=== PATIENT | female | born 1955 | race Two or more races ===

== ENCOUNTER → 2024-04-19 | Day surgery (SDC) | payer OTHER | END | disposition home or self-care (01) | LOC: FRADUS-SUR 11:09 | PROVIDERS: ATTEND Surgery | PROC: 0H9V3ZX Drainage of Bilateral Breast, Percutaneous Approach, Diagnostic (ICD-10-PCS; principal; 2024-04-19) | DX: N60.31 Fibrosclerosis of right breast (principal); N60.21 Fibroadenosis of right breast; N60.11 Diffuse cystic mastopathy of right breast; N60.32 Fibrosclerosis of left breast; N60.12 Diffuse cystic mastopathy of left breast; N60.82 Other benign mammary dysplasias of left breast; N64.89 Other specified disorders of breast | CPT/HCPCS: 19085; 19086; 76642-TC-LT; 77066-TC; 88305-TC; A4648 ==

== ENCOUNTER 2024-09-08 06:50 | Inpatient (IN) | payer OTHER ==
[2024-09-08] MEDS ORDERED: PROPOFOL 20 ML ONE ×2 (08:47→18:04)
[2024-09-08] MEDS ORDERED: MIDAZOLAM HCL 2 MG/2 ML SINGLE DOSE VIAL ONE ×2 (08:48→19:21)
[2024-09-08] MEDS ORDERED: ceFAZolin SODIUM 1 GM VIAL ONE (08:49)
[2024-09-08] MEDS ORDERED: ONDANSETRON 4 MG/2 ML VIAL ONE (08:49)
[2024-09-08] MEDS ORDERED: LIDOCAINE HCL/PF 2% SDV 5ML VIAL ONE (08:49)
[2024-09-08] MEDS ORDERED: DEXAMETHASONE SOD PHOSPHATE 4 MG/1 ML VIAL ONE (08:49)
[2024-09-08] MEDS ORDERED: PROPOFOL 60 ML ONE (08:51)
[2024-09-08] MEDS ORDERED: HYDROmorphone HCl 2 MG/ML VIAL ONE (08:54)
[2024-09-08] MEDS ORDERED: SEVOFLURANE 250 ML BTL ONE (08:55)
[2024-09-08] MEDS ORDERED: ACETAMINOPHEN INJECTION 100 ML ONE (08:56)
[2024-09-08] MEDS ORDERED: BUPIVACAINE HCL/PF 0.5% (5MG/ML) 10 ML VIAL ONE (08:56)
[2024-09-08] MEDS ORDERED: ISOSULFAN BLUE 50 MG/5 ML VIAL SQ ONE (08:56)
[2024-09-08] MEDS: ceFAZolin 2 GRAM PREMIX BAG IVPB ONE (10:15)
[2024-09-08] MEDS ORDERED: ROCURONIUM BROMIDE 50 MG/5 ML SYRINGE ONE ×3 (10:21→20:15)
[2024-09-08] MEDS ORDERED: BACITRACIN ZINC 15 GM TUBE TOPICAL OINTMENT ONE (11:54)
[2024-09-08] MEDS ORDERED: SUGAMMADEX SODIUM 200 MG/2 ML VIAL ONE ×2 (11:59→20:40)
[2024-09-08] MEDS ORDERED: ONDANSETRON 4 MG/2 ML VIAL IVPUSH PRN ×3 (12:45→21:18)
[2024-09-08] MEDS ORDERED: oxyCODONE HCL 5 MG TABLET PO PRN ×6 (12:45→21:18)
[2024-09-08] MEDS ORDERED: MECLIZINE HCL 12.5 MG TABLET PO SCH (13:00)
[2024-09-08] MEDS: LACTATED RINGERS SOLUTION 1,000 ML IV SCH ×2 (16:01→21:49)
[2024-09-08] MEDS: INSULIN ASPART SLIDING SCALE (NOVOLOG) 1 VIAL SQ SCH ×2 (17:10→23:19)
[2024-09-08] MEDS: LACTATED RINGERS SOLUTION 1000 ML INFUS.BAG IV ONE (17:50)
[2024-09-08] MEDS ORDERED: SUCCINYLCHOLINE CHLORIDE 200 MG/10 ML SYRINGE ONE (18:04)
[2024-09-08] MEDS ORDERED: TRANEXAMIC ACID 1000 MG/10 ML VIAL ONE (18:04)
[2024-09-08] MEDS: SODIUM CHLORIDE 1,000 ML IV STA (18:05)
[2024-09-08] MEDS: TRANEXAMIC ACID 1000 MG/10 ML VIAL IVPB ONE (18:27)
[2024-09-08] MEDS ORDERED: ETOMIDATE 20 MG/10 ML VIAL IVPUSH ONE (18:28)
[2024-09-08 18:34] LABS: HEMATOCRIT 25.4 % (32.4-45.2); HEMOGLOBIN 8.2 GM/dL (10.7-15.3); MCH 35.2 pg (25.7-33.7); MCHC 32.5 g/dl (32.0-36.0); MEAN CELL VOLUME 108.3 fl (80-96); MEAN PLT VOLUME 9.3 fl (7.5-11.1); PLATELET COUNT 247 10^3/uL (134-434); RBC 2.34 M/mm3 (3.60-5.2); RDW 16.9 % (11.6-15.6); WHITE BLOOD COUNT 18.6 K/mm3 (4.0-10.0)
[2024-09-08 18:46] LABS: INR 1.21 (0.83-1.09); PROTHROMBIN TIME (PATIENT) 13.2 SEC (9.7-13.0)
[2024-09-08 18:56] LABS: ADD RBC MORPHOLOGY YES
[2024-09-08 18:57] LABS: POTASSIUM 3.5 mmol/L (3.5-5.1)
[2024-09-08 18:58] LABS: CALCIUM 8.3 mg/dL (8.5-10.1)
[2024-09-08 18:59] LABS: BLOOD UREA NITROGEN 20.7 mg/dL (7-18)
[2024-09-08 19:02] LABS: CREATININE 0.7 mg/dL (0.55-1.3)
[2024-09-08] MEDS: CEFAZOLIN 1 GM/D5W 1 GM/50 ML BAG IVPB SCH (19:02)
[2024-09-08 19:55] LABS: ANISOCYTOSIS 2+; MACROCYTOSIS 2+; TEAR DROP CELLS 1+
[2024-09-08 20:00] LABS: HEMATOCRIT 30.5 % (32.4-45.2); MCH 31.6 pg (25.7-33.7); MCHC 32.7 g/dl (32.0-36.0); MEAN CELL VOLUME 96.8 fl (80-96); PLATELET COUNT 138 10^3/uL (134-434); RBC 3.15 M/mm3 (3.60-5.2); RDW 18.4 % (11.6-15.6); WHITE BLOOD COUNT 16.6 K/mm3 (4.0-10.0)
[2024-09-08 20:01] LABS: ARTERIAL BLD GAS O2 SATURATION 99.6 % (95-98); ARTERIAL BLOOD GAS BASE EXCESS -10.3 mmol/L (-2-2); ARTERIAL BLOOD GAS PO2 328.9 mmHg (80-100); ARTERIAL BLOOD GAS pH 7.219 (7.350-7.450)
[2024-09-08] MEDS: ALBUMIN HUMAN 5% 250 ML IV SOLUTION IV ONE (20:15)
[2024-09-08 20:22] LABS: INR 1.48 (0.83-1.09); PROTHROMBIN TIME (PATIENT) 16.1 SEC (9.7-13.0)
[2024-09-08 20:28] LABS: POTASSIUM 3.8 mmol/L (3.5-5.1)
[2024-09-08 20:30] LABS: BLOOD UREA NITROGEN 17.1 mg/dL (7-18)
[2024-09-08 20:33] LABS: CREATININE 0.6 mg/dL (0.55-1.3)
[2024-09-08 20:41] LABS: ARTERIAL BLD GAS O2 SATURATION 99.8 % (95-98); ARTERIAL BLOOD GAS BASE EXCESS -6.2 mmol/L (-2-2); ARTERIAL BLOOD GAS PO2 379.4 mmHg (80-100); ARTERIAL BLOOD GAS pH 7.305 (7.350-7.450)
[2024-09-08] MEDS ORDERED: MECLIZINE HCL 12.5 MG TABLET PO PRN (21:18)
[2024-09-08 21:23] LABS: LACTIC ACID 2.7 mmol/L (0.4-2.0)
[2024-09-08] MEDS: ACETAMINOPHEN 1000 MG/100 ML BAG IVPB SCH (22:58)
[2024-09-09] MEDS: CEFAZOLIN 1 GM in DEXTROSE 5%-WATER - 50 ML IVPB ONE (00:07)
[2024-09-09] MEDS ORDERED: CEFAZOLIN 1 GM/D5W 1 GM/50 ML BAG IVPB SCH (02:00)
[2024-09-09] MEDS: ACETAMINOPHEN 1000 MG/100 ML BAG IVPB SCH (04:05)
[2024-09-09] MEDS: CEFAZOLIN 1 GM in DEXTROSE 5%-WATER - 50 ML IVPB SCH (06:35)
[2024-09-09 07:55] LABS: BASO % 0.3 % (0-2.0); EOS % 0.1 % (0-4.5); HEMATOCRIT 25.8 % (32.4-45.2); HEMOGLOBIN 9.3 GM/dL (10.7-15.3); MCH 33.1 pg (25.7-33.7); MEAN CELL VOLUME 91.7 fl (80-96); MEAN PLT VOLUME 9.2 fl (7.5-11.1); MONO % 10.6 % (3.8-10.2); PLATELET COUNT 132 10^3/uL (134-434); RBC 2.82 M/mm3 (3.60-5.2); RDW 19.6 % (11.6-15.6); WHITE BLOOD COUNT 10.9 K/mm3 (4.0-10.0)
[2024-09-09 08:18] LABS: POTASSIUM 3.7 mmol/L (3.5-5.1)
[2024-09-09 08:19] LABS: BLOOD UREA NITROGEN 15.2 mg/dL (7-18); CALCIUM 8.7 mg/dL (8.5-10.1)
[2024-09-09 08:23] LABS: CREATININE 0.6 mg/dL (0.55-1.3)
[2024-09-09] MEDS: ATORVASTATIN CA 20 MG TABLET (FP) PO SCH (09:29)
[2024-09-09] MEDS: oxyCODONE HCL 5 MG TABLET PO PRN (09:31)
[2024-09-09] MEDS ORDERED: MUPIROCIN 2% TOPICAL OINTMENT FOR DECOLONIZATION NS SCH (10:00)
[2024-09-09] MEDS ORDERED: HYDROCHLOROTHIAZIDE 25 MG TABLET (FP) PO SCH (10:00)
[2024-09-09] MEDS ORDERED: LOSARTAN POTASSIUM 50 MG TABLET PO SCH (10:00)
[2024-09-09] MEDS ORDERED: ASPIRIN 81 MG CHEWABLE TABLETS PO SCH (10:00)
[2024-09-09] MEDS ORDERED: ATORVASTATIN CA 20 MG TABLET (FP) PO SCH (10:00)
[2024-09-09 10:37] VITALS: RESP 16
[2024-09-09 12:30] VITALS: BMI 27.6
[2024-09-09] MEDS ORDERED: oxyCODONE HCL 5 MG TABLET PO PRN (12:46)
[2024-09-09 15:09] VITALS: BP 112/72; PULSE 80; TEMP 99
[2024-09-09] MEDS ORDERED: CHLORHEXIDINE GLUCONATE 4% CLEANSER FOR DECOLONIZATION TP SCH (22:00)
== END 2024-09-09 15:00 | disposition home or self-care (01) | DRG 580 ==
LOC: JASUSAT 06:50 → JASU-SURG 06:50 → JASUSAT 11:10 → J7W 15:51 → J8W 16:29 → JICU 22:31
PROVIDERS: ADMIT Student in an Organized Health Care Education/Training Program; ATTEND Internal Medicine
PROC: 30233N1 Transfusion of Nonautologous Red Blood Cells into Peripheral Vein, Percutaneous Approach (ICD-10-PCS; 2024-09-08)
PROC: 07B50ZX Excision of Right Axillary Lymphatic, Open Approach, Diagnostic (ICD-10-PCS; principal; 2024-09-08 10:30)
PROC: 0HTT0ZZ Resection of Right Breast, Open Approach (ICD-10-PCS; 2024-09-08 10:30)
PROC: 0W380ZZ Control Bleeding in Chest Wall, Open Approach (ICD-10-PCS; 2024-09-08 10:30)
PROC: 0W980ZZ Drainage of Chest Wall, Open Approach (ICD-10-PCS; 2024-09-08 10:30)
DX: C50.911 Malignant neoplasm of unspecified site of right female breast (principal); D62 Acute posthemorrhagic anemia; L76.32 Postprocedural hematoma of skin and subcutaneous tissue following other procedure; Y83.8 Other surgical procedures as the cause of abnormal reaction of the patient, or of later complication, without mention of misadventure at the time of the procedure; I95.81 Postprocedural hypotension; E86.1 Hypovolemia; R73.03 Prediabetes; I10 Essential (primary) hypertension; E78.5 Hyperlipidemia, unspecified; Z86.73 Personal history of transient ischemic attack (TIA), and cerebral infarction without residual deficits
CPT/HCPCS: 36415; 36430; 36600; 76098-TC-FY; 78195-TC; 80048; 82803; 82962; 83605; 85025; 85027; 85384; 85610; 85730; 86900; 86922; 88305-TC; 88307-TC; 88341-TC; 88342-TC; 94760; 97116-GP; 97162-GP; A9541; J0131; P9012; P9017; P9058